=== PATIENT | male | born 1955 | race Caucasian/White ===

== ENCOUNTER 2017-05-14 15:30 | Inpatient (IN) ==
--- NOTE | 2017-05-14 16:50 | Emergency Department Note ---
Arrival - Arrival Chief Complaint: Shortness of Breath Stated Complaint: feet and stomach swollen ED Nursing Triage Note: PT C/O SHORTNESS OF BREATH. REPORTS INCREASED EDEMA TO ABD AND FEET. PT WAS SEEN [address] VENTURA AND PUT ON LASIX. PT STATES NO IMPROVEMENT. ABD IS LARGE AND DISTENDED WITH PITTING EDEMA TO BLE. Mode of Arrival: Wheelchair Limitations: No Limitations Source: Patient Time Seen by Provider: 05/14/17 16:43 - History of Present Illness HPI Narrative: This 61-year-old white male with advanced cirrhosis of the liver complicated by hepatoma status post radiation implants presents with progressive peripheral edema and tight ascites. Patient states he was taken off his Lasix 2 weeks ago when apparently he was beginning to develop hepatorenal syndrome and this has only accelerated his decline. The patient is currently being treated in [place] for his liver problems and locally by Dr. Frost. He also sees Dr. Ventura locally as well as Dr. Bosch for chronic pain. The patient's cirrhosis based on hepatitis C complicated by alcohol. CT scan in April revealed nodular liver with intra-abdominal and retroperitoneal peritoneal metastatic disease consistent with hepatocellular carcinoma, complicated by significant malignant ascites as well as incidental finding of cholelithiasis. Patient's main complaint is discomfort from tense ascites and the increasing shortness of breath accompanied by this situation. Currently the patient appears uncomfortable but in no acute distress Onset (ago): week(s) (Patient presents 2 weeks post onset of symptoms) Allergies/Adverse Reactions: Allergies Allergy/AdvReac Type Severity Reaction Status Date / Time No Known Allergies Allergy Verified 05/14/17 15:58 Home Medications: Home Medications Medication Instructions Recorded Confirmed Type Calcium Carbonate/Vitamin D3 2 capsule PO DAILY 04/20/17 04/20/17 History [Calcium 600 + Vit D Tablet] Ferrous Sulfate [Iron] 2 capsule PO DAILY 04/20/17 04/20/17 History Hydrocodone/Ibuprofen 1 each PO QID PRN 04/20/17 04/20/17 History [Hydrocodone-Ibuprofen 7.5-200] Valsartan/Hctz 160-12.5 [Diovan 1 tablet PO DAILY 04/20/17 04/20/17 History Hct 160-12.5] Review of System - Review of System 12 point system: reviewed and no additional remarkable complaints except as stated - Review of System Constitutional: Present: as per HPI Respiratory: Present: as per HPI Cardiovascular: Present: as per HPI Gastrointestinal: Present: as per HPI Medical,Surgical,& Family Hx - Medical History Cardio: History of: Hypertension Neurology: History of: Peripheral Neuropathy No history of: Seizures HEENT: History of: Eye Problem (wears glasses; 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) Endocrine: History of: Diabetes Mellitus (NIDDM) Gastrointestinal: History of: Hepatitis (Hepatitis C), Liver Problems (Hepatoma on liver; cirrhotic bed; liver cancer with radium beads implanted) Hematology: History of: Anemia (Childhood) Reproductive: No histroy: Reproductive Cancer Other: History of: Cancer (Hx; Liver CA with radiation beads implanted 4 years ago) - Surgical History Cardiac Surgeries: Patient Denies: Cardiac Catheterization Thoracic Surgeries: Patient denies;: Organ Transplant HEENT Surgeries: Patient denies: Eye Surgery, Thyroid Surgery, Tonsilectomy & Adenoidectomy Abdominal Surgeries: Surgical HX of: Colonoscopy Patient denies: Abdominal Surgery, Appendectomy, Cholecystectomy, EGD, Hernia Repair Reproductive Surgeries: Patient denies;: Genitourinary Surgery, Vasectomy Orthopedic Surgeries: Surgical HX of;: Implanted Devices, Orthopedic Surgery ( RIGHT ankle fracture with plates/ins) - Family History Family History: Reports;: Family Cancer (Sister (melanoma)), Family Diabetes ( Mother), Family Hypertension (Mother), Family Stroke (Mother) Denies;: Family Anesthesia Reaction, Family Heart Disease, Family Psychiatric Problems - Social History Smoking Status: Current every day smoker Frequency of Alcohol Use: None Type of Drug Use: None Exam Physical Examination: GENERAL: Chronically ill appearing jaundiced white male in no acute distress. HEENT: Normocephalic. No trauma. Moist mucous membranes. EOMI. PERRLA. Scleral icterus ENT NML NECK: Supple. No adenopathy. CARDIAC: Regular. No murmurs. Heart rate 91 CHEST: Scattered expiratory wheezes. No respiratory distress. O2 sat 100% ABDOMEN: Soft. Firm abdomen with fluid wave associated with hypoactive bowel sounds. EXTREMITIES: No trauma. Normal ROM. 2+ pedal edema with blistering. SKIN: No diaphoresis. No rash. Jaundiced NEURO: Alert. Oriented 3. Motor, sensory, vibratory intact. No focal deficits. Vital Signs: Vital Signs Temperature 98 F 05/14/17 17:00 Pulse Rate 91 H 05/14/17 17:00 Respiratory Rate 18 05/14/17 17:00 Blood Pressure 135/93 05/14/17 17:00 O2 Sat by Pulse Oximetry 100 05/14/17 15:53 Course - Reevaluation(s) Reevaluation #1: Discussed with family the need for hospitalization but did explain to them the advance character of his disease. They expressed the desire not to put him on any machines if things deteriorated. - Consultations Consultation #1: Discussed with hospitalist service who will admit for further evaluation treatment. Results - Labs CBC & BMP: 05/14/17 16:55 05/14/17 16:55 Labs: I reviewed the laboratory and noted the diffuse abnormal liver function studies as well as evidence of hepatorenal syndrome with elevated BUN and creatinine. - Diagnostic Findings Procedure: Chest x-ray: image reviewed by me, report reviewed by me (Bibasilar atelectasis with bilateral small pleural effusions.) Disposition Clinical Impression: Hepatocellular carcinoma, Malignant ascites, Hepatorenal syndrome Case discussed with: patient, patient's family Disposition: Still a Patient Condition: Guarded Time of Disposition: 17:54
[2017-05-14 17:10] LABS: Basophils # 0.1 10*3/uL (0.0-0.2); Basophils % 0.7 % (0.0-0.8); Eosinophils # 0.2 10*3/uL (0.0-0.87); Eosinophils % 2.6 % (0.00-10.9); Immature Granulocytes % 0.4 %; Immature Granulocytes Absolute 0.03 #; Lymphocytes # 1.2 10*3/uL (1.4-4.0); Lymphocytes % 16.6 % (21.2-54.2); Mean Corpuscular HGB Conc 35.7 GM/DL (32-36); Mean Corpuscular Hemoglobin 33 PG (27-34); Mean Corpuscular Volume 91.7 FL (87-102); Mean Platelet Volume 11.7 FL (9.6-12.0); Monocytes # 0.9 10*3/uL (0.11-0.8); Monocytes % 13.4 % (1.7-12.7); Neutrophils # 4.6 10*3/uL (1.4-7.4); Neutrophils % 66.3 % (38.7-73.9); Platelet Count 204 T/CUMM (130-400); Red Blood Count 4.58 MC/CUMM (3.8-5.5); Red Cell Distribution Width 16.2 % (9.3-17.3)
[2017-05-14 17:16] LABS: Apearance,Urine CLEAR (Clear); Bacteria,Urine Occasional /HPF (Few); Bilirubin,Urine Negative (Negative); Blood, Urine Small mg/dL (Negative); Glucose,Urine (UA) 50 mg/dL (Negative); Ketones,Urine Negative (Negative); Nitrite,Urine Negative (Negative); Protein,Urine Negative; RBC,Urine 1 /HPF (0-4); Squamous Epithelial Cell,Urine Occasional /HPF (0-10); Urine Color Yellow (Yellow); Urine Specific Gravity 1.014 (1.001-1.035); Urine Urobilinogen < 2.0 EU/DL (0.2-1.0); WBC,Urine 3 /HPF (0-6)
--- NOTE | 2017-05-14 17:17 | XRay Report ---
Portable chest Date: 05/14/2017 Clinical history: Alteration of consciousness Comparison: None Technique: Portable AP sitting chest Findings: The heart is enlarged with calcification in the aortic knob. Diffuse parenchymal findings at the lung bases with at least small pleural effusions. Old healed rib fractures. Impression: Bibasilar atelectasis/infiltration/edema with at least small bilateral pleural effusions. PROCEDURE INTERPRETED AT [facility] DEPARTMENT OF RADIOLOGY Final Report Signed by: Dr. Juanita Daley
[2017-05-14 17:25] LABS: INR 1.2; PT Patient Result 12.2 SECS; Partial Thromboplastin Time 25.3 SECS (0-40)
[2017-05-14 17:27] LABS: Barbiturates Screen,Urine Negative (Negative); Benzodiazepines Screen,Urine Positive (Negative); Cannabinoid Screen,Urine Negative (Negative); Opiate Screen,Urine Positive (Negative); Phencyclidine Screen,Urine Negative (Negative)
[2017-05-14 17:31] LABS: Albumin 2.4 G/DL (3.4-5.0); Bilirubin,Total 1.4 MG/DL (0.2-1.0); Calcium 9.2 MG/DL (8.5-10.1); Osmolality,Calculated 301.8 MOS/KG (273-304); Potassium 4.8 MMOL/L (3.5-5.1); Total Protein 7.4 G/DL (6.4-8.3)
[2017-05-14] MEDS ORDERED: ONDANSETRON 4 MG/2 ML VIAL IV PRN (18:22)
[2017-05-14] MEDS ORDERED: NON-FORMULARY MEDICATION (Hydrocodone/Ibuprofen [Hydrocodone-Ibuprofen 7.5-200] 1 EACH) PO PRN (18:29)
--- NOTE | 2017-05-14 18:34 | Hospitalist History & Physical ---
Assessment and Plan (1) Ascites Status: Acute Current Visit: Yes (2) Liver cirrhosis Status: Acute Current Visit: Yes (3) Hepatocellular carcinoma Status: Acute Current Visit: Yes (4) Acute kidney injury Status: Acute Current Visit: Yes (5) History of hypertension Status: Acute Current Visit: Yes (6) history of diabetes Status: Acute Current Visit: Yes (7) Tobacco abuse Status: Acute Assessment and plan: Our plan for this patient will be admitting him to our service. Going to get an ultrasound-guided paracentesis for symptomatic relief. He carries this diagnosis based on a recent CT scan of hepatocellular carcinoma the family was not aware of. I suspect it was because they did not go imaging. To his appointment with to see Dr. Frost. Will get a consult Dr. Frost to see if it offers any guidance or wants further ordered a CEA and alpha-fetoprotein lab from the morning. Patient is not febrile. This is experience symptoms from the ascites. Continue home meds as appropriate once they are confirmed. Patient has history of diabetes is on no medications will perform Accu-Cheks before meals and at bedtime and sliding scale if needed. Per discussion with [facility] [employer] with the patient's family he is a DNR. Discussed the need to quit smoking to the patient. Greater than 3 minutes was spent on discussing tobacco abuse. Will order a nicotine patch for the patient reevaluate patient in the morning and adjust plans appropriate Current Visit: Yes History of Present Illness Chief complaint: Lower extremity swelling and ascites History of present illness: Mr. Gunn is a 61 year old male with past medical history significant for chronic pain, diabetes, hypertension, cirrhosis and hep C who has been experiencing lower extremity and abdominal swelling 2-1/[address] Roland and Dr. Frost. Apparently Dr. Ventura tried him on some Lasix but after couple days stopped it. He had declining kidney function at that time. He was seen recently at Dr. Jasmine's office. The family members that were with him today were not at that visit. When I was looking through the records that we have in the electronic medical records I found the CT scan report ordered by Dr. Frost on 04/20/2017. It showed changes consistent with hepatocellular carcinoma and recommended a PET/CT or postcontrast MRI for further characterization. The family was not aware of this diagnosis. And based on this diagnosis they opted to make him a DNR. I am admitting him for further evaluation with Dr. Frost and for paracentesis. Hopefully this will give him some symptomatic relief. Home Medications Medication Instructions Recorded Confirmed Type Calcium Carbonate/Vitamin D3 2 capsule PO DAILY 04/20/17 04/20/17 History [Calcium 600 + Vit D Tablet] Ferrous Sulfate [Iron] 2 capsule PO DAILY 04/20/17 04/20/17 History Hydrocodone/Ibuprofen 1 each PO QID PRN 04/20/17 04/20/17 History [Hydrocodone-Ibuprofen 7.5-200] Valsartan/Hctz 160-12.5 [Diovan 1 tablet PO DAILY 04/20/17 04/20/17 History Hct 160-12.5] Allergies Allergy/AdvReac Type Severity Reaction Status Date / Time No Known Allergies Allergy Verified 05/14/17 15:58 Medical,Surgical,& Family Hx - Medical History Cardio: History of: Hypertension Neurology: History of: Peripheral Neuropathy No history of: Seizures HEENT: History of: Eye Problem (wears glasses; 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) Endocrine: History of: Diabetes Mellitus (NIDDM) Gastrointestinal: History of: Hepatitis (Hepatitis C), Liver Problems (Hepatoma on liver; cirrhotic bed; liver cancer with radium beads implanted) Hematology: History of: Anemia (Childhood) Reproductive: No histroy: Reproductive Cancer Other: History of: Cancer (Hx; Liver CA with radiation beads implanted 4 years ago) - Surgical History Cardiac Surgeries: Patient Denies: Cardiac Catheterization Thoracic Surgeries: Patient denies;: Organ Transplant HEENT Surgeries: Patient denies: Eye Surgery, Thyroid Surgery, Tonsilectomy & Adenoidectomy Abdominal Surgeries: Surgical HX of: Colonoscopy Patient denies: Abdominal Surgery, Appendectomy, Cholecystectomy, EGD, Hernia Repair Reproductive Surgeries: Patient denies;: Genitourinary Surgery, Vasectomy Orthopedic Surgeries: Surgical HX of;: Implanted Devices, Orthopedic Surgery ( RIGHT ankle fracture with plates/ins) - Family History Family History: Reports;: Family Cancer (Sister (melanoma)), Family Diabetes ( Mother), Family Hypertension (Mother), Family Stroke (Mother) Denies;: Family Anesthesia Reaction, Family Heart Disease, Family Psychiatric Problems - Social History Smoking Status: Current every day smoker Frequency of Alcohol Use: None Type of Drug Use: None 12 point system: reviewed and no additional remarkable complaints except as stated - Constitutional Constitutional: Present: as per HPI, anorexia - EENT Eyes: Present: as per HPI Ears: Present: as per HPI Nose, mouth and throat: Present: as per HPI - Cardiovascular Cardiovascular: Present: as per HPI - Respiratory Respiratory: Present: as per HPI - Gastrointestinal Gastrointestinal: Present: bloating, nausea - Genitourinary Genitourinary: Present: as per HPI - Musculoskeletal Musculoskeletal: Present: as per HPI - Neurological Neurological: Present: as per HPI - Psychiatric Psychiatric: Present: as per HPI - Endocrine Endocrine: Present: as per HPI - Hematologic/Lymphatic Hematologic/Lymphatic: Present: as per HPI Exam - Constitutional Vitals: Period Temp Pulse Resp BP Sys/Adair Pulse Ox Last 24 Hr 98 F-98.0 F 91-91 18-18 135-135/93-93 100 General appearance: over weight - Head Head exam: Present: normal inspection - Eye Eye exam: Present: other (Patient is blind on his left eye and is unreactive) - ENT ENT exam: Present: normal exam - Neck Neck exam: Present: normal inspection - Respiratory Respiratory exam: Present: rhonchi, wheezes - Cardiovascular Cardiovascular exam: Present: regular rate and rhythm - GI/Abdominal GI/Abdominal exam: Present: ascites, distended, firm, hypoactive bowel sounds - Extremities Exam Extremities exam: Present: edema - Back Exam Back exam: Present: normal inspection Results - Labs CBC & BMP: 05/14/17 16:55 05/14/17 16:55
[2017-05-14] MEDS: MORPHINE 2 MG/1 ML SYRINGE IV PRN (22:58)
[2017-05-14] MEDS: ALBUTEROL/IPRATROPIUM 3 ML NEB RESP TX SCH (23:03)
[2017-05-15] MEDS: ALBUTEROL/IPRATROPIUM 3 ML NEB RESP TX SCH ×4 (00:10→18:57)
[2017-05-15 03:50] LABS: Basophils # 0.1 10*3/uL (0.0-0.2); Basophils % 0.6 % (0.0-0.8); Eosinophils # 0.1 10*3/uL (0.0-0.87); Eosinophils % 1.3 % (0.00-10.9); Hematocrit 39.1 VOL% (42.0-52.0); Hemoglobin 13.8 GM/DL (14.0-18.0); Immature Granulocytes % 0.5 %; Immature Granulocytes Absolute 0.04 #; Lymphocytes % 11.6 % (21.2-54.2); Mean Corpuscular HGB Conc 35.3 GM/DL (32-36); Mean Corpuscular Hemoglobin 32 PG (27-34); Mean Corpuscular Volume 91.4 FL (87-102); Mean Platelet Volume 11.8 FL (9.6-12.0); Monocytes # 1.1 10*3/uL (0.11-0.8); Monocytes % 12.2 % (1.7-12.7); Neutrophils # 6.5 10*3/uL (1.4-7.4); Neutrophils % 73.8 % (38.7-73.9); Platelet Count 195 T/CUMM (130-400); Red Blood Count 4.28 MC/CUMM (3.8-5.5); Red Cell Distribution Width 15.9 % (9.3-17.3); White Blood Count 8.8 T/CUMM (4-12)
[2017-05-15 04:23] LABS: Albumin 2.2 G/DL (3.4-5.0); Osmolality,Calculated 305.5 MOS/KG (273-304); Potassium 4.5 MMOL/L (3.5-5.1); Total Protein 6.4 G/DL (6.4-8.3)
[2017-05-15 05:15] LABS: Carcinoembryonic Antigen 2.5 NG/ML (0.0-5.0)
--- NOTE | 2017-05-15 06:44 | Order Completion Report ---
See report scanned to EMR
[2017-05-15] MEDS: PANTOPRAZOLE 40 MG TABLET PO SCH (09:07)
[2017-05-15] MEDS: NICOTINE 21 MG/24 HR PATCH TRANSDERM SCH (09:07)
--- NOTE | 2017-05-15 09:20 | Gastrointestinal Consult Note ---
Assessment and Plan (1) Hepatocellular carcinoma Status: Acute Assessment and plan: This is apparently been going on for the last 5 years and was previously treated at [facility], the patient unfortunately lapsed in his post treatment coverage and unfortunately has had a recurrence that is widely metastatic. He would like to talk to oncology and discuss chemotherapy options versus consideration of hospice. AFP level is extremely high and CT scan shows white infiltration of the liver with hepatocellular carcinoma and malignant ascites most likely. I did tell him that his only options likely are palliative chemotherapy at this point. He is not a candidate for transplant. Current Visit: Yes (2) Alcoholic cirrhosis of liver with ascites Status: Acute Assessment and plan: The patient does have a history of drinking 1/5 of whiskey per day for many years and development of hepatitis C on top of this. This was partially treated but the patient developed optic neuritis and elected not to have any further therapy. Unfortunately hepatitis C has recurred adding to his tendency toward cirrhosis. No further therapy will be offered given his limited prognosis. Current Visit: Yes (3) Decompensated HCV cirrhosis Status: Acute Assessment and plan: Paracentesis is being done for the malignant ascites today. I am not sure that cytology would add additional information that would be helpful. Because of his extremity swelling will give him low-dose Lasix and Spironolactone. Will need to follow his renal function to see how he does with this. I do not feel like he is in hepatorenal syndrome at this point. He really is on no medications at this point aside from symptomatic meds and would benefit from the use of his diuretics. Current Visit: Yes (4) Alternating constipation and diarrhea Status: Acute Assessment and plan: The patient does have alternating diarrhea and constipation possibly in association with his narcotic use as he tends to be diarrheal typically biopsies show a self-limited colitis. We will treat him symptomatically from here on. There was no evidence of microscopic or collagenous colitis. Current Visit: Yes History of Present Illness Chief complaint: Hepatocellular carcinoma with malignant ascites, HCV/alcoholic cirrhosis History of present illness: Mr. Gunn is a 61 year old male who has a history of hepatitis C in the past with cirrhosis status post treatment with This patient had been seen once after referral by Marce Ventura for a 6 year history of nausea, abdominal pain, diarrhea , bloating and constipation. He is a previous alcoholic with a history of drinking up to 1/5 of whiskey per day as well as hepatitis C which was treated with medications over at [facility], the patient's took the medications for 6-8 months but developed a complication with optic neuritis and blindness in his right eye and the medications were discontinued. Unfortunately the patient developed a hepatoma and this was treated with radium beads (by report) and a repeat CT scanning done 4 years ago seem to indicate that the patient was "cured". It seems at that point he stopped going to see his radiation oncologist/ disaster recovery consultant, and again the first time that I saw him in clinic was on 04/11/17 at which point we ordered a repeat CT scan and AFP level. This was twofold as the patient appeared to have some ascites on physical exam I want to see if this was bloating associated with ascites versus obesity or bowel gas. CT scan was performed on 04/20/17 which demonstrated marked nodular liver with irregular borders increased left and right hepatic ratio consistent with cirrhosis with marked heterogeneity in appearance and micronodular enhancing pattern on arterial and portal venous phases with no well-defined lesions demonstrated over the appearance of hepatocellular carcinoma and intra-abdominal retroperitoneal metastatic adenopathy constellation of which was very suggestive of widely metastatic hepatocellular carcinoma especially given the recent AFP level of 8372 (normal between 0 and 8.3 ng/mL). My office was told to with a referral to oncology to discuss options., There was nothing for GI practically to offer. The patient did undergo colonoscopy considering alternating diarrhea and constipation on 04/24/17 and the biopsies demonstrated acute self-limited colitis. Patient was given some Linzess 72 mg per day for the constipation phase as this seemed to be predominant with his use of narcotics but he was unable to take this as it induced a severe diarrhea. AST at that point was 417 with an ALT of 113, alkaline phosphatase 290 and a bilirubin of 1.6 with a direct bilirubin of 1.0. Total protein was 7.7 with an albumin of 2.6. HCV viral load indicated the patient was not cured of [place] [address] [place] per milliliter. His initial ammonia level was 62 mcg/dL all these labs from . The patient is in at this time with bloating from his ascites and lower extremity swelling which has been increasing over time. Laboratory indicated a BUN and creatinine of 86 and one-point. Bilirubin has increased slightly to 2.0 with a slight worsening of the patient's liver function tests now currently with a ALT of 83, AST of 219, total bilirubin 2.0, and alkaline phosphatase of 306 today. Ammonia level was 39 on admission which is mildly improved. The patient at this point wishes to discuss chemotherapy options versus exploring hospice. We did discuss the fact that chemotherapy would likely be palliative and not curative given his advanced disease. 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) Endocrine: History of: Diabetes Mellitus (NIDDM) Gastrointestinal: History of: Hepatitis (Hepatitis C), Liver Problems (Hepatoma on liver; cirrhotic bed; liver cancer with radium beads implanted) Hematology: History of: Anemia (Childhood) Reproductive: No histroy: Reproductive Cancer Other: History of: Cancer (Hx; Liver CA with radiation beads implanted 4 years ago) - Surgical History Cardiac Surgeries: Patient Denies: Cardiac Catheterization Thoracic Surgeries: Patient denies;: Organ Transplant HEENT Surgeries: Patient denies: Eye Surgery, Thyroid Surgery, Tonsilectomy & Adenoidectomy Abdominal Surgeries: Surgical HX of: Colonoscopy Patient denies: Abdominal Surgery, Appendectomy, Cholecystectomy, EGD, Hernia Repair Reproductive Surgeries: Patient denies;: Genitourinary Surgery, Vasectomy Orthopedic Surgeries: Surgical HX of;: Implanted Devices, Orthopedic Surgery ( RIGHT ankle fracture with plates/ins) - Family History Family History: Reports;: Family Cancer (Sister (melanoma)), Family Diabetes ( Mother), Family Hypertension (Mother), Family Stroke (Mother) Denies;: Family Anesthesia Reaction, Family Heart Disease, Family Psychiatric Problems - Social History Smoking Status: Current every day smoker Frequency of Alcohol Use: None Type of Drug Use: None Review of systems: Constitutional: Denies fever, chills, but positive for nausea without Eyes: Denies dry eyes, and mild scleral icterus present at times HENT: Denies headaches Cardiovascular: Denies acute chest pain and claudication Respiratory: Patient does have some shortness of breath, but no wheezing, and difficulty breathing, denies cough Gastrointestinal: As noted in the HPI Genitourinary: Denies dysuria and hematuria Neurologic: He does have some previous optic neuritis associated vision loss, but no loss of sensation Musculoskeletal: The patient admits to joint swelling, joint stiffness, and muscular weakness Psychiatric: He does have some depression, history of alcoholism but no maite symptoms Heme-Lymph: Admits to easy bruising, but does not have lymph node enlargement or tenderness, night sweats, excessive bleeding Allergies-immunologic: Denies pruritus and rhinorrhea Exam - Constitutional Vitals: Period Temp Pulse Resp BP Sys/Adair Pulse Ox Last 24 Hr 97.5 F-99.5 F 85-102 16-20 124-155/65-93 94-100 General appearance: mild distress - Eye Eye exam: Present: EOMI Pupils: Present: GASTON - Respiratory Respiratory exam: Present: clear to auscultation bilaterally. Absent: rhonchi, wheezes - Cardiovascular Cardiovascular exam: Present: regular rate and rhythm - GI/Abdominal GI/Abdominal exam: Present: ascites, distended, firm, hypoactive bowel sounds, tenderness (Mild diffuse). Absent: guarding, rebound - Extremities Exam Extremities exam: Present: edema (+[address] way up to the knees) - Neurological Exam Neurological exam: Present: alert, oriented X3 - Psychiatric Psychiatric exam: Present: normal affect, normal mood - Skin Skin exam: Present: warm Results - Labs CBC & BMP: 05/15/17 03:11 05/15/17 03:11
--- NOTE | 2017-05-15 09:44 | Hospitalist Progress Note ---
Assessment and Plan (1) Hepatocellular carcinoma Status: Chronic Assessment and plan: As noted above, he wishes to proceed with chemotherapy, if he is a candidate. I will consult oncology. Current Visit: Yes (2) Acute kidney injury Status: Acute Assessment and plan: His BUN and creatinine are 86 and one-point respectively. It is not clear if this is acute or chronic renal insufficiency. Current Visit: Yes (3) Alcoholic cirrhosis of liver with ascites Status: Acute Assessment and plan: He has severe ascites. I will consult interventional radiology for a paracenteses. Current Visit: Yes Hospitalist: Subjective Interval history: Patient has advanced hepatocellular carcinoma with severe ascites. He was seen in consultation today by gastroenterology. He wishes to proceed with chemotherapy. Exam - Constitutional Vitals: Period Temp Pulse Resp BP Sys/Adair Pulse Ox Last 24 Hr 97.5 F-99.5 F 85-102 16-20 124-155/65-93 94-100 General appearance: no acute distress, cachectic - Head Head exam: Present: normal inspection - Neck Neck exam: Present: normal inspection - Respiratory Respiratory exam: Present: clear to auscultation bilaterally - Cardiovascular Cardiovascular exam: Present: regular rate and rhythm - GI/Abdominal GI/Abdominal exam: Present: ascites, distended, other (Nontender.) - Extremities Exam Extremities exam: Present: normal inspection - Neurological Exam Neurological exam: Present: alert, oriented X3 - Skin Skin exam: Present: pallor Results - Labs CBC & BMP: 05/15/17 03:11 05/15/17 03:11
--- NOTE | 2017-05-15 11:58 | Post Interventional Procedure ---
Pre-op diagnosis: cirrhosis with multifocal HCC and ascites Post-op diagnosis: same Procedure: u/s paracentesis Contrast: none Flouroscopy: none Radiologist: Michael Leigh Anesthesia: local Specimens: none sent Estimated blood loss: none Complications: none Condition: stable Description/Findings: 5000 mL serous ascitic fluild removed Assessment and Plan - Time spent with patient Time spent with patient: Less than 30 minutes
--- NOTE | 2017-05-15 12:01 | Ultrasound Report ---
Exam: Ultrasound-guided paracentesis Clinical history: Cirrhosis with ascites. Physician: Dr. Leigh. Procedure: Informed consent was obtained prior to procedure. A formal timeout was performed. Maximum sterile barrier technique was used. The right lower quadrant was prepped and draped in sterile fashion. Under sonographic guidance, a 6 Czech safety centesis catheter and needle were advanced into the ascites using trocar technique. A captured sonographic image documents needle position. The needle was removed. Through the catheter, we obtained a total of 5000 cc of straw-colored ascites. No additional fluid could be obtained. Therefore, the catheter was removed. A bandage was placed at the puncture site. The patient tolerated the procedure well. Complications: None. Estimated blood loss: Less than 5 mL. Impression: Technically successful ultrasound guided paracentesis. PROCEDURE INTERPRETED AT [facility] DEPARTMENT OF RADIOLOGY Final Report Signed by: Michael Leigh
[2017-05-15] MEDS: MORPHINE 2 MG/1 ML SYRINGE IV PRN ×2 (13:00→20:39)
[2017-05-15] MEDS ORDERED: ENOXAPARIN 40 MG/0.4 ML SYRINGE SUBCUT SCH (21:00)
[2017-05-16] MEDS: ALBUTEROL/IPRATROPIUM 3 ML NEB RESP TX SCH ×3 (00:11→14:00)
[2017-05-16 05:37] LABS: Calcium 8.3 MG/DL (8.5-10.1); Magnesium 2.4 MG/DL (1.8-2.4); Osmolality,Calculated 301.4 MOS/KG (273-304); Potassium 3.9 MMOL/L (3.5-5.1)
--- NOTE | 2017-05-16 08:10 | Oncology Consult Note ---
Assessment and Plan - Time spent with patient Time spent with patient: Greater than 30 minutes (1) Hepatocellular carcinoma Status: Chronic Assessment and plan: I had a lengthy discussion with Mr. Gunn this morning. I explained to him that he has stage IV hepatocellular carcinoma with underlying liver cirrhosis. I recommended to him that he pursue home hospice as there is no targeted therapy that can be done for such extensive disease. There is an option for doing oral systemic therapy but there is very little benefit to these medications particularly in someone with underlying liver dysfunction. He is in agreement with doing nothing at this time. He is unsure if he wants to go on home hospice yet or not. I gave him my contact information to notify us if he would like for us to arrange home hospice at some point in the near future. For now there is nothing to offer from an oncology standpoint. Current Visit: Yes (2) Ascites Status: Acute Current Visit: Yes (3) Liver cirrhosis Status: Acute Current Visit: Yes History of Present Illness History of present illness: Mr. Gunn is a 61 year old male with a history of alcoholic cirrhosis and hepatocellular carcinoma that was reportedly treated 4-5 years ago with radiation beads at [facility] with a very good response per the patient's report. He did not go back for follow-up over the last 2-3 years. He presented to GI last month with abdominal distention and fullness. A CT scan was done which showed findings on the liver consistent with diffuse hepatocellular carcinoma along with numerous significantly enlarged lymph nodes throughout his abdomen. His alpha-fetoprotein level was measured over 8000 at that time. These findings are consistent with recurrent advanced hepatocellular carcinoma. He was admitted to the hospital now. He is undergone 5 L paracentesis. Oncology has been consulted to discuss his options with him. 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) Endocrine: History of: Diabetes Mellitus (NIDDM) Gastrointestinal: History of: Hepatitis (Hepatitis C), Liver Problems (Hepatoma on liver; cirrhotic bed; liver cancer with radium beads implanted) Hematology: History of: Anemia (Childhood) Reproductive: No histroy: Reproductive Cancer Other: History of: Cancer (Hx; Liver CA with radiation beads implanted 4 years ago) - Surgical History Cardiac Surgeries: Patient Denies: Cardiac Catheterization Thoracic Surgeries: Patient denies;: Organ Transplant HEENT Surgeries: Patient denies: Eye Surgery, Thyroid Surgery, Tonsilectomy & Adenoidectomy Abdominal Surgeries: Surgical HX of: Colonoscopy Patient denies: Abdominal Surgery, Appendectomy, Cholecystectomy, EGD, Hernia Repair Reproductive Surgeries: Patient denies;: Genitourinary Surgery, Vasectomy Orthopedic Surgeries: Surgical HX of;: Implanted Devices, Orthopedic Surgery ( RIGHT ankle fracture with plates/ins) - Family History Family History: Reports;: Family Cancer (Sister (melanoma)), Family Diabetes ( Mother), Family Hypertension (Mother), Family Stroke (Mother) Denies;: Family Anesthesia Reaction, Family Heart Disease, Family Psychiatric Problems - Social History Smoking Status: Current every day smoker Frequency of Alcohol Use: None Type of Drug Use: None 12 point system: reviewed and no additional remarkable complaints except as stated - Constitutional Constitutional: Present: fatigue, malaise - Cardiovascular Cardiovascular ROS IM: Present: edema. Absent: chest pain, orthopnea - Respiratory Respiratory: Present: dyspnea. Absent: cough, hemoptysis Exam - Constitutional Vitals: Period Temp Pulse Resp BP Sys/Adair Pulse Ox Last 24 Hr 97.8 F-99.4 F 80-100 14-20 111-146/64-82 93-100 General appearance: normal weight, no acute distress - Head Head Exam: Present: normocephalic, atraumatic - Eye Eye Exam: Present: EOMI, scleral icterus Pupils: Present: PERRL - ENT ENT exam: Present: normal exam, normal oropharynx - Neck Neck exam: Absent: lymphadenopathy, thyromegaly - Respiratory Respiratory exam: Present: CTAB. Absent: wheezes - Cardiovascular Cardiovascular exam: Present: RRR. Absent: JVD, systolic murmur - GI/Abdominal GI/Abdominal exam: Present: ascites, distended, soft. Absent: firm, mass - Neurological Exam Neurological exam: Present: alert, oriented X3 - Psychiatric Psychiatric exam: Present: normal affect, normal mood - Skin Skin exam: Present: warm, dry Results - Labs CBC & BMP: 05/15/17 03:11 05/16/17 04:06 Lab Results: I have reviewed the past 24 hour labs - Diagnostic Findings Procedure: CT Abdomen and Pelvis: report reviewed by me Quality Measures - VTE Contraindication to Mechanical VTE Prophylaxis: Local Inflammation
--- NOTE | 2017-05-16 08:46 | Gastrointestinal Progress Note ---
Assessment and Plan (1) Hepatocellular carcinoma Status: Chronic Assessment and plan: This is apparently been going on for the last 5 years and was previously treated at [facility], the patient unfortunately lapsed in his post treatment coverage and unfortunately has had a recurrence that is widely metastatic. He would like to talk to oncology and discuss chemotherapy options versus consideration of hospice. AFP level is extremely high and CT scan shows white infiltration of the liver with hepatocellular carcinoma and malignant ascites most likely. I did tell him that his only options likely are palliative chemotherapy at this point. He is not a candidate for transplant. 05/16/17--this patient was rechecked this morning and was found to have an even higher AFP level than previously--currently up to 9628 from its previous level of over 8000. This is consistent with hepatocellular carcinoma which is widely metastatic. The patient is leaning towards hospice. Seems to be arranged as an outpatient. I will follow him up in the office in another 3 weeks to see how his peripheral edema is doing and whether he needs another tap for malignant ascites/possible peritoneal carcinomatosis. Current Visit: Yes (2) Alcoholic cirrhosis of liver with ascites Status: Acute Assessment and plan: The patient does have a history of drinking 1/5 of whiskey per day for many years and development of hepatitis C on top of this. This was partially treated but the patient developed optic neuritis and elected not to have any further therapy. Unfortunately hepatitis C has recurred adding to his tendency toward cirrhosis. No further therapy will be offered given his limited prognosis. 05/16/17--The patient has been advised to follow a low-sodium diet in order to keep the peripheral edema and ascites in check. I will have the dietary staff provide him education concerning this dietary change. He can certainly be discharged from the hospital from my standpoint on the prescriptions I have written for him which include omeprazole 20 mg 30 minutes prior to suppertime, spironolactone 100 mg p.o. daily and Lasix 40 mg p.o. daily. He will be following up with me in the office in another 3 weeks to see how he is doing at that point. Strongly suggest getting him involved with hospice given his limited prognosis. Current Visit: Yes (3) Decompensated HCV cirrhosis Status: Acute Assessment and plan: Paracentesis is being done for the malignant ascites today. I am not sure that cytology would add additional information that would be helpful. Because of his extremity swelling will give him low-dose Lasix and Spironolactone. Will need to follow his renal function to see how he does with this. I do not feel like he is in hepatorenal syndrome at this point. He really is on no medications at this point aside from symptomatic meds and would benefit from the use of his diuretics. 05/16/17--Doing well with the above regimen. Current Visit: Yes (4) Alternating constipation and diarrhea Status: Acute Assessment and plan: The patient does have alternating diarrhea and constipation possibly in association with his narcotic use as he tends to be diarrheal typically biopsies show a self-limited colitis. We will treat him symptomatically from here on. There was no evidence of microscopic or collagenous colitis. 05/16/17--Some of the above diarrhea may also be secondary to bowel wall edema with his ascites. 60 g protein diet is suggested and avoidance of sodium. Otherwise treat this symptomatically. It does not really have much effect on the patient's life at this time. If he requires lactulose in the future to help with encephalopathy this is likely to worsen his diarrhea. Current Visit: Yes Gastroenterology - PN: Subj Interval history: The patient is doing fairly well this time he is able to eat at least 80% of his tray, swelling is down slightly in his legs and despite start of Lasix and spironolactone yesterday his creatinine is improved today currently at 1.6 down from 1.8 yesterday. Electrolytes are actually doing all right as well. Unfortunately there was little for Dr. Ayala to offer from an oncologic standpoint. The patient is a good candidate for hospice. Exam (Progress Note) - Constitutional Vitals: Period Temp Pulse Resp BP Sys/Adair Pulse Ox Last 24 Hr 97.8 F-99.4 F 80-100 14-20 111-146/64-82 93-100 General appearance: no acute distress - Head Head exam: Present: normocephalic, atraumatic - Eye Eye exam: Present: EOMI - Respiratory Respiratory exam: Present: clear to auscultation bilaterally. Absent: rhonchi, stridor, wheezes - Cardiovascular Cardiovascular exam: Present: regular rate and rhythm - GI/Abdominal GI/Abdominal exam: Present: normal bowel sounds, ascites, distended, tenderness (Mild diffuse tenderness), soft. Absent: guarding, rebound - Extremities Exam Extremities exam: Present: edema (+[address] up to the knees bilaterally, this is marginally improved from yesterday) - Neurological Exam Neurological exam: Present: alert, oriented X3. Absent: altered - Psychiatric Psychiatric exam: Present: normal affect, normal mood - Skin Skin exam: Present: warm Results - Labs CBC & BMP: 05/15/17 03:11 05/16/17 04:06
[2017-05-16] MEDS: NICOTINE 21 MG/24 HR PATCH TRANSDERM SCH (08:49)
[2017-05-16] MEDS: PANTOPRAZOLE 40 MG TABLET PO SCH (08:50)
[2017-05-16] MEDS ORDERED: FUROSEMIDE 40 MG TABLET PO SCH (09:00)
[2017-05-16] MEDS ORDERED: SPIRONOLACTONE 100 MG TABLET PO SCH (09:00)
--- NOTE | 2017-05-16 10:07 | Hospitalist Progress Note ---
Assessment and Plan (1) Hepatocellular carcinoma Status: Chronic Assessment and plan: I appreciate the oncology and gastroenterology consultations. I consulted case management for referral to hospice. Current Visit: Yes (2) Acute kidney injury Status: Acute Assessment and plan: His BUN and creatinine are 73 and 1.6 respectively today. They were 85 and 1.8 on admission on 05/14/17. Current Visit: Yes (3) Alcoholic cirrhosis of liver with ascites Status: Acute Assessment and plan: He has severe ascites. I will defer to gastroenterology for further management. Current Visit: Yes Hospitalist: Subjective Interval history: Patient was seen yesterday in consultation by gastroenterology and oncology. He was recommended by oncology for hospice care, to which he has agreed. I have consulted case management for hospice referral. When arrangements have been made, I will discharge the patient. Exam - Constitutional Vitals: Period Temp Pulse Resp BP Sys/Adair Pulse Ox Last 24 Hr 97.8 F-99.4 F 80-100 14-20 111-146/64-82 90-100 General appearance: no acute distress, cachectic - Head Head exam: Present: normal inspection - Neck Neck exam: Present: normal inspection - Respiratory Respiratory exam: Present: clear to auscultation bilaterally - Cardiovascular Cardiovascular exam: Present: regular rate and rhythm - GI/Abdominal GI/Abdominal exam: Present: distended, other (Nontender.) - Extremities Exam Extremities exam: Present: normal inspection - Neurological Exam Neurological exam: Present: alert, oriented X3 - Skin Skin exam: Present: normal color, warm, intact Results - Labs CBC & BMP: 05/15/17 03:11 05/16/17 04:06 Quality Measures - VTE Contraindication to Mechanical VTE Prophylaxis: Local Inflammation Specialty Discharge - Follow Up or Referrals Follow up with: Chidi Frost MD [Physician] - 06/06/17 10:15 am
--- NOTE | 2017-05-16 14:39 | Discharge Summary ---
Hospital Course - Hospital Course Hospital Course: Mr. Gunn is a 61 year old male with past medical history significant for chronic pain, diabetes, hypertension, cirrhosis and hep C who has been experiencing lower extremity and abdominal swelling 2-1/[address] Roland and Dr. Frost. Apparently Dr. Ventura tried him on some Lasix but after couple days stopped it. He had declining kidney function at that time. He was seen recently at Dr. Jasmine's office. The family members that were with him today were not at that visit. When I was looking through the records that we have in the electronic medical records I found the CT scan report ordered by Dr. Frost on 04/20/2017. It showed changes consistent with hepatocellular carcinoma and recommended a PET/CT or postcontrast MRI for further characterization. The family was not aware of this diagnosis. And based on this diagnosis they opted to make him a DNR. I am admitting him for further evaluation with Dr. Frost and for paracentesis. Patient subsequently underwent a successful paracentesis with some improvement of his abdominal symptoms. He was seen in consultation by Dr. Chidi Frost: Mr. Gunn is a 61 year old male who has a history of hepatitis C in the past with cirrhosis status post treatment with This patient had been seen once after referral by Marce Ventura for a 6 year history of nausea, abdominal pain, diarrhea , bloating and constipation. He is a previous alcoholic with a history of drinking up to 1/5 of whiskey per day as well as hepatitis C which was treated with medications over at [facility], the patient's took the medications for 6-8 months but developed a complication with optic neuritis and blindness in his right eye and the medications were discontinued. Unfortunately the patient developed a hepatoma and this was treated with radium beads (by report) and a repeat CT scanning done 4 years ago seem to indicate that the patient was "cured". It seems at that point he stopped going to see his radiation oncologist/ saw offbearer, and again the first time that I saw him in clinic was on 04/11/17 at which point we ordered a repeat CT scan and AFP level. This was twofold as the patient appeared to have some ascites on physical exam I want to see if this was bloating associated with ascites versus obesity or bowel gas. CT scan was performed on 04/20/17 which demonstrated marked nodular liver with irregular borders increased left and right hepatic ratio consistent with cirrhosis with marked heterogeneity in appearance and micronodular enhancing pattern on arterial and portal venous phases with no well-defined lesions demonstrated over the appearance of hepatocellular carcinoma and intra-abdominal retroperitoneal metastatic adenopathy constellation of which was very suggestive of widely metastatic hepatocellular carcinoma especially given the recent AFP level of 8372 (normal between 0 and 8.3 ng/mL). My office was told to with a referral to oncology to discuss options., There was nothing for GI practically to offer. The patient did undergo colonoscopy considering alternating diarrhea and constipation on 04/24/17 and the biopsies demonstrated acute self-limited colitis. Patient was given some Linzess 72 mg per day for the constipation phase as this seemed to be predominant with his use of narcotics but he was unable to take this as it induced a severe diarrhea. AST at that point was 417 with an ALT of 113, alkaline phosphatase 290 and a bilirubin of 1.6 with a direct bilirubin of 1.0. Total protein was 7.7 with an albumin of 2.6. HCV viral load indicated the patient was not cured of [place] [address] [place] per milliliter. His initial ammonia level was 62 mcg/dL all these labs from . The patient is in at this time with bloating from his ascites and lower extremity swelling which has been increasing over time. Laboratory indicated a BUN and creatinine of 86 and one-point. Bilirubin has increased slightly to 2.0 with a slight worsening of the patient's liver function tests now currently with a ALT of 83, AST of 219, total bilirubin 2.0, and alkaline phosphatase of 306 today. Ammonia level was 39 on admission which is mildly improved. The patient at this point wishes to discuss chemotherapy options versus exploring hospice. We did discuss the fact that chemotherapy would likely be palliative and not curative given his advanced disease. He was seen in consultation by Dr. Олег Hill: I had a lengthy discussion with Geremiasyani this morning. I explained to him that he has stage IV hepatocellular carcinoma with underlying liver cirrhosis. I recommended to him that he pursue home hospice as there is no targeted therapy that can be done for such extensive disease. There is an option for doing oral systemic therapy but there is very little benefit to these medications particularly in someone with underlying liver dysfunction. He is in agreement with doing nothing at this time. He is unsure if he wants to go on home hospice yet or not. I gave him my contact information to notify us if he would like for us to arrange home hospice at some point in the near future. For now there is nothing to offer from an oncology standpoint Patient was referred to hospice for home hospice care. A wheelchair was ordered for him because of his severe weakness and inability to walk. At the time of his discharge she was comfortable with no pain. Diagnosis - Discharge Diagnosis (1) Hepatocellular carcinoma Status: Chronic (2) Acute kidney injury Status: Acute (3) Alcoholic cirrhosis of liver with ascites Status: Acute Specialty Discharge - Follow Up or Referrals Follow up with: Олег Hill MD [Physician] - Chidi Frost MD [Physician] - 06/06/17 10:15 am Discharge Plan - Discharge Data Disposition: Hospice - Home Condition at Discharge: Stable Discharge Diet: advance to your usual diet Activity: resume usual activities as tolerated - Discharge Medications New Spironolactone [Aldactone] 100 mg PO DAILY tablet Continue ALPRAZolam [Xanax] 1 mg PO DAILY Hydrocodone/Ibuprofen [Hydrocodone-Ibuprofen 7.5-200] 1 each PO QID PRN PRN Reason: Pain - Follow Up or Referral Follow Up: Олег Hill MD [Physician] - Chidi Frost MD [Physician] - 06/06/17 10:15 am - Forms/Instructions Instructions: Cirrhosis (DC), Liver Cancer (DC) Exam - Constitutional Vitals: Period Temp Pulse Resp BP Sys/Adair Pulse Ox Last 24 Hr 98.4 F-99.8 F 80-100 16-20 111-146/64-73 90-100 Discharge Results Procedures and tests throughout hospitalization: Pending Orders 05/17/17 04:00 BMP [Basic Metabolic Panel] IN AM Basic Metabolic Panel w/Mg IN AM 05/18/17 04:00 Basic Metabolic Panel w/Mg IN AM Labs on day of discharge: Labs from last 24 hours 05/16/17 05/15/17 04:06 03:11 Sodium 140 Potassium 3.9 Chloride 109 H Carbon Dioxide 22 Anion Gap 12.9 BUN 73 H Creatinine 1.60 H GFR Calculation 56 BUN/Creatinine Ratio 45.00 H Glucose 114 H Calculated Osmolality 301.4 Calcium 8.3 L Magnesium 2.4 Tumor Marker AFP 9628.0 H Carcinoembryonic Ag 2.5 DS: Provider Date of admission: 05/14/17 17:52 Primary care physician: Marce Ventura MD Attending physician on admission: Eduardo Palomo Consults: 05/14/17 18:22 Consult to Physician [CONS] Routine Comment: patient known to you Consulting Provider: Chidi Frost Consulting Provider Notified: Yes When should Consulting Provider be notified: Now Person Notified: sammie called Date Notified: 05/15/17 Time Notified: 08:40 05/14/17 20:28 Consult to Pastoral Services [CONS] Routine Comment: Pastoral Screen: Request Tube Test Technician Visit Pastoral Screen Source of Request: Patient Family 05/15/17 09:05 Consult to Physician [CONS] Routine Comment: Metastatic Hepatoma-- chemo option education Consulting Provider: Олег Hill Consulting Provider Notified: Yes When should Consulting Provider be notified: Now Person Notified: edin called Date Notified: 05/15/17 Time Notified: 09:58 05/15/17 09:45 Consult to Physician [CONS] Routine Comment: hepatocellular carcinoma Consulting Provider: Consulting Provider Notified: Yes When should Consulting Provider be notified: Now Consult to Specialist Group: Oncology When should Consulting Provider be notified: Now Person Notified: edin called 05/16/17 09:30 Consult to Case Mgmt/Social Srvs [CONS] Routine Reason for Case Mgmt/Social Srvs: Hospice Referral Consult Comment: hepatocellular carcinoma 05/16/17 13:55 Consult to Case Mgmt/Social Srvs [CONS] Routine Reason for Case Mgmt/Social Srvs: Equipment Discharge Planning Consult Comment: Deliver Wheelchair to room 330, Pt will D/C today; Pt 5ft 9in 203 lbs Discharging clinician: Eduardo Palomo
[2017-05-16 16:16] VITALS: BP 115/69
== END 2017-05-16 17:55 | disposition hospice, home (50) | DRG 281 ==
LOC: N.ED 15:30 → N.EDINP 17:52 → N.3E 19:20